=== PATIENT | female | born 1930 | race Caucasian/White ===

== ENCOUNTER 2019-07-24 16:12 | Inpatient (IN) | payer MEDICARE, BC ==
[~2019-07-24] VITALS: Ht 154.9 cm; Wt 51.8 kg
[~2019-07-24 16:12] MED LIST: ASPI-515 PO; ATOR40TA78 PO; CARV3.1212 PO; FAMO20TA7 PO; FLUT1BLS INH; FURO20TA3 PO; IPRA3AMP30 NPPB; LISI5TAB7 PO; POTA20LI2 NG
--- NOTE | 2019-07-24 16:30 | NUR ---
PT IN BED, KNOWS [facility] IN THE HOSPITAL, NO SIGNS OF DISTRESS, DOESN'T LIKE COMMUNICATING WITH THE NURSE OR PHYSICIAN, YELLS OUT FOR "HELP" WHEN NURSE IN ROOM.
[2019-07-24] MEDS ORDERED: SODIUM CHLORIDE FLUSH 10ML SYR IVF ONE (17:00)
[2019-07-24] MEDS ORDERED: ALBUTEROL/IPRATROPIUM 2.5MG/0.5MG, 3 ML NPPB SCH (17:00)
[2019-07-24] MEDS ORDERED: ALBUTEROL/IPRATROPIUM 2.5MG/0.5MG, 3 ML ONE (17:10)
[2019-07-24 17:17] LABS: INTERNATIONAL NORMALIZED RATIO 1.1 (0.93-1.1); PROTHROMBIN TIME 11.7 Seconds (9.6-11.5)
[2019-07-24 17:19] LABS: ALANINE AMINOTRANSFERASE 26 U/L (12-78); ALBUMIN 2.7 g/dL (3.4-5.0); ANION GAP 7 mmol/L (5-15); CHLORIDE 101 mmol/L (98-107); CREATININE 0.82 mg/dL (0.55-1.02)
[2019-07-24 17:23] LABS: ALKALINE PHOSPHATASE 98 U/L (45-117); BILIRUBIN,TOTAL 1.2 mg/dL (0.2-1.0); TOTAL PROTEIN 6.9 g/dL (6.4-8.2)
--- NOTE | 2019-07-24 17:30 | NUR ---
GRANDGRACIELA AND RT AT BEDSIDE, PT TOLERATING WELL. PT DID NOT WANT TO GO TO XRAY AT FIRST, HAD TO BE REMINDED WHY XRAY OF R HIP IS NECESSARY.
[2019-07-24] MEDS ORDERED: POTA20TA89 PO (17:31)
[2019-07-24] MEDS ORDERED: BUSP5TAB2 PO (17:31)
[2019-07-24] MEDS ORDERED: ENOX40SY4 SQ (17:31)
[2019-07-24] MEDS ORDERED: ACET-2065 PO (17:34)
[2019-07-24] MEDS ORDERED: DOCU100C33 PO (17:34)
--- NOTE | 2019-07-24 17:52 | NUR ---
PT BACK FROM IMAGING.
--- NOTE | 2019-07-24 18:50 | NUR ---
PT RESTING IN BED, ON OXY MASK. PT GRANDSON HAS LEFT, PT TO BE ADMITTED. DRESSINGS ON BILAT LOWER EXT REMOVED PER HOSPITALIST REQUEST. REPORT TO ISHAN
--- NOTE | 2019-07-24 19:04 | NUR ---
REPORT FROM GRAHAM. PT IN [facility], NO ACUTE DISTRESS, SIDE RAILS LOCKED, SAFETY PRECAUTIONS IN PLACE.
--- NOTE | 2019-07-24 19:15 | NUR ---
PLACED OPTIFOAN ON RIGHT LEG SKIN TEAR.
--- NOTE | 2019-07-24 19:23 | NUR ---
REPORT TO KOBY BAH.
[2019-07-24] MEDS ORDERED: BISACODYL 10 MG SUPP PR PRN (19:30)
[2019-07-24] MEDS ORDERED: HALOPERIDOL 5 MG/ML IVPush PRN (19:30)
[2019-07-24] MEDS ORDERED: hydrALAzine 20 MG/ML, 1ML IVPush PRN (19:30)
[2019-07-24] MEDS ORDERED: ONDANSETRON 2MG/ML, 2ML IVPush PRN (19:30)
[2019-07-24] MEDS ORDERED: VANCOMYCIN PER PHARMACY MC PRN (22:30)
[2019-07-24] MEDS ORDERED: VANCOMYCIN 1,300 MG in SODIUM CHLORIDE 0.9% 250 ML IV SCH (22:30)
[2019-07-24] MEDS ORDERED: PHARMACOKINETIC MONITORING MC PRN (22:30)
[2019-07-24] MEDS: DOCUSATE 100 MG CAPSULE PO SCH (22:30)
[2019-07-24] MEDS ORDERED: PHARMACOKINETIC CONSULTATION MC ONE (22:30)
[2019-07-24] MEDS: morphine SULFATE 10 MG/ML, 1ML IVPush PRN (22:55)
[2019-07-24] MEDS: ENOXAPARIN 60 MG/0.6 ML SQ SCH (23:02)
[2019-07-24] MEDS: FUROSEMIDE 20 MG TABLET PO SCH (23:02)
[2019-07-24] MEDS: BUSPIRONE 5 MG TABLET PO SCH (23:02)
[2019-07-24] MEDS: AMPICILLIN/SULBACTAM 3 GM in SODIUM CHLORIDE 0.9% 100 ML IV SCH (23:02)
[2019-07-24] MEDS: CARVEDILOL 3.125 MG TABLET PO SCH (23:02)
[2019-07-24] MEDS: ATORVASTATIN 40 MG TABLET PO SCH (23:02)
[2019-07-24 23:42] LABS: RAPID INFLUENZA A Negative (Negative); RAPID INFLUENZA B Negative (Negative)
[2019-07-25] MEDS: morphine SULFATE 10 MG/ML, 1ML IVPush PRN ×4 (00:12→22:25)
[2019-07-25 01:27] VITALS: BP 115/79
[2019-07-25] MEDS ORDERED: AMIO100T4 PO ×2 (01:34)
[2019-07-25] MEDS ORDERED: APIX5TAB PO (02:32)
[2019-07-25 03:47] VITALS: BP 137/62
[2019-07-25] MEDS ORDERED: ALBUTEROL/IPRATROPIUM 2.5MG/0.5MG, 3 ML NPPB PRN (04:30)
[2019-07-25] MEDS: AMPICILLIN/SULBACTAM 3 GM in SODIUM CHLORIDE 0.9% 100 ML IV SCH ×3 (06:11→23:56)
[2019-07-25 06:30] VITALS: BP 115/47
[2019-07-25 06:46] LABS: BASOPHILS % (AUTO) 0 % (0-1); EOSINOPHILS % (AUTO) 0 % (1-7); LYMPHOCYTES % (AUTO) 7 % (22-44); MD NO; MEAN CORPUSCULAR HEMOGLOBIN 31.6 pg (27.0-34.8); MEAN CORPUSCULAR HGB CONC 33.2 g/dL (32.4-35.8); MEAN PLATELET VOLUME 7.4 fL (7.4-10.4); MONOCYTES # (AUTO) 0.55 x10^3/uL (0.2-0.8); MONOCYTES % (AUTO) 5 % (2-9); NEUTROPHILS % (AUTO) 88 % (42-75); PLATELET COUNT 330 x10^3/uL (130-400); RED CELL DISTRIBUTION WIDTH 14.6 % (9.6-15.2)
[2019-07-25 06:56] LABS: ANION GAP 7 mmol/L (5-15); CALCIUM 7.6 mg/dL (8.5-10.1); CHLORIDE 101 mmol/L (98-107); CREATININE 0.74 mg/dL (0.55-1.02)
[2019-07-25] MEDS: LIDODERM REMOVE PATCH NOTE XX SCH (08:30)
[2019-07-25] MEDS: BUDESONIDE 0.5 MG/2 ML INHA NPPB SCH ×2 (08:34→20:40)
[2019-07-25] MEDS: ALBUTEROL/IPRATROPIUM 2.5MG/0.5MG, 3 ML NPPB SCH ×3 (08:34→20:40)
[2019-07-25] MEDS: FUROSEMIDE 20 MG TABLET PO SCH ×2 (09:09→19:07)
[2019-07-25] MEDS: BUSPIRONE 5 MG TABLET PO SCH ×2 (09:10→20:28)
[2019-07-25] MEDS: POTASSIUM CHLORIDE 20 MEQ TAB.ER.PRT PO SCH (09:10)
[2019-07-25] MEDS: DOCUSATE 100 MG CAPSULE PO SCH ×2 (09:10→20:28)
[2019-07-25] MEDS: CARVEDILOL 3.125 MG TABLET PO SCH ×2 (09:10→20:28)
[2019-07-25] MEDS: ENOXAPARIN 60 MG/0.6 ML SQ SCH (10:30)
[2019-07-25 12:10] VITALS: BP 110/62
[2019-07-25 18:20] VITALS: BP 131/54
[2019-07-25] MEDS: ATORVASTATIN 40 MG TABLET PO SCH (20:28)
[2019-07-25] MEDS: ACETAMINOPHEN 325 MG TABLET PO PRN (20:55)
[2019-07-25] MEDS: LIDODERM 5% PATCH TD PRN (20:55)
[2019-07-26 00:17] VITALS: BP 119/50
[2019-07-26] MEDS: morphine SULFATE 10 MG/ML, 1ML IVPush PRN ×2 (01:42→16:13)
[2019-07-26] MEDS: ALBUTEROL/IPRATROPIUM 2.5MG/0.5MG, 3 ML NPPB SCH ×4 (03:10→20:19)
[2019-07-26 06:53] LABS: BASOPHILS # (AUTO) 0.03 x10^3/uL (0-0.1); BASOPHILS % (AUTO) 0 % (0-1); EOSINOPHILS % (AUTO) 0 % (1-7); LYMPHOCYTES # (AUTO) 1.19 x10^3/uL (1-3.4); LYMPHOCYTES % (AUTO) 9 % (22-44); MD NO; MEAN CORPUSCULAR HEMOGLOBIN 30.7 pg (27.0-34.8); MEAN CORPUSCULAR HGB CONC 32.3 g/dL (32.4-35.8); MEAN PLATELET VOLUME 8.1 fL (7.4-10.4); MONOCYTES # (AUTO) 0.96 x10^3/uL (0.2-0.8); MONOCYTES % (AUTO) 7 % (2-9); NEUTROPHILS # (AUTO) 11.15 x10^3/uL (1.8-6.8); NEUTROPHILS % (AUTO) 84 % (42-75); PLATELET COUNT 433 x10^3/uL (130-400); RED BLOOD COUNT 3.63 x10^6/uL (3.82-5.3); RED CELL DISTRIBUTION WIDTH 15.4 % (9.6-15.2)
[2019-07-26 07:04] LABS: INTERNATIONAL NORMALIZED RATIO 1.07 (0.93-1.1); PROTHROMBIN TIME 11.4 Seconds (9.6-11.5)
[2019-07-26 07:05] LABS: ALBUMIN 2.4 g/dL (3.4-5.0); ANION GAP 8 mmol/L (5-15); CALCIUM 7.6 mg/dL (8.5-10.1); CHLORIDE 99 mmol/L (98-107)
[2019-07-26 07:08] LABS: CREATININE 0.79 mg/dL (0.55-1.02)
[2019-07-26 07:09] LABS: ALANINE AMINOTRANSFERASE 27 U/L (12-78); ALKALINE PHOSPHATASE 84 U/L (45-117); BILIRUBIN,TOTAL 0.9 mg/dL (0.2-1.0); TOTAL PROTEIN 6.7 g/dL (6.4-8.2)
[2019-07-26] MEDS: AMPICILLIN/SULBACTAM 3 GM in SODIUM CHLORIDE 0.9% 100 ML IV SCH ×2 (08:00→16:00)
[2019-07-26] MEDS: FUROSEMIDE 20 MG TABLET PO SCH ×2 (08:00→17:00)
[2019-07-26] MEDS: CARVEDILOL 3.125 MG TABLET PO SCH ×2 (08:09→21:45)
[2019-07-26 08:12] VITALS: BP 162/66
[2019-07-26] MEDS: LIDODERM REMOVE PATCH NOTE XX SCH (08:30)
[2019-07-26] MEDS: BUSPIRONE 5 MG TABLET PO SCH (09:00)
[2019-07-26] MEDS: DOCUSATE 100 MG CAPSULE PO SCH ×2 (09:00→21:45)
[2019-07-26] MEDS: POTASSIUM CHLORIDE 20 MEQ TAB.ER.PRT PO SCH (09:00)
[2019-07-26] MEDS: BUDESONIDE 0.5 MG/2 ML INHA NPPB SCH ×2 (10:00→20:19)
[2019-07-26] MEDS ORDERED: ALBUTEROL/IPRATROPIUM 2.5MG/0.5MG, 3 ML NPPB PRN (10:00)
[2019-07-26] MEDS ORDERED: HALOPERIDOL 5 MG/ML IV PRN (10:00)
[2019-07-26] MEDS ORDERED: HYDROmorphone 2 MG/ML, 1ML IVPush PRN (10:00)
[2019-07-26] MEDS ORDERED: MEPERIDINE/PF 25MG/ML,1ML IVPush PRN (10:00)
[2019-07-26] MEDS ORDERED: PROMETHAZINE 25 MG/ML, 1ML IV PRN (10:00)
[2019-07-26] MEDS ORDERED: LABETALOL 5MG/ML, 20ML IV PRN (10:00)
[2019-07-26] MEDS ORDERED: FENTANYL PF 100 MCG/2ML IV PRN (10:00)
[2019-07-26] MEDS ORDERED: METOPROLOL 1 MG/ML, 5ML IV PRN (10:00)
[2019-07-26] MEDS ORDERED: OXYcodone 5 MG/5 ML ORAL.SOL UDC PO PRN (10:00)
[2019-07-26] MEDS ORDERED: hydrALAzine 20 MG/ML, 1ML IV PRN (10:00)
[2019-07-26] MEDS ORDERED: FENTANYL PF 100 MCG/2ML ONE (10:03)
[2019-07-26] MEDS ORDERED: NEOSTIGMINE 1 MG/ML, 10ML ONE ×2 (10:52→12:02)
[2019-07-26] MEDS ORDERED: ONDANSETRON 2MG/ML, 2ML ONE (12:02)
[2019-07-26] MEDS ORDERED: ROCURONIUM 10MG/ML,5ML ONE (12:02)
[2019-07-26] MEDS ORDERED: CEFAZOLIN 1,000 MG ONE (12:02)
[2019-07-26] MEDS ORDERED: DEXAMETHASONE 4 MG/ML, 1ML ONE (12:02)
[2019-07-26] MEDS ORDERED: PROPOFOL 10 MG/ML, 20ML ONE (12:02)
[2019-07-26] MEDS ORDERED: SUCCINYLCHOLINE 20 MG/ML, 10ML ONE (12:02)
[2019-07-26] MEDS ORDERED: GLYCOPYRROLATE 0.2MG/1ML, 5ML ONE (12:02)
[2019-07-26] MEDS ORDERED: SUGAMMADEX 200 MG/2 ML IVPush ONE (12:02)
[2019-07-26] MEDS: CEFAZOLIN PMX 1GM/50ML 50 ML IV SCH ×2 (13:00→22:15)
[2019-07-26] MEDS ORDERED: ALBUTEROL/IPRATROPIUM 2.5MG/0.5MG, 3 ML ONE (13:05)
[2019-07-26] MEDS ORDERED: DIPHENHYDRAMINE 50 MG/ML, 1ML IVPush ONE (14:00)
[2019-07-26] MEDS ORDERED: MORPHINE SULFATE 4 MG/ML, 1ML ONE (16:12)
[2019-07-26] MEDS ORDERED: HALOPERIDOL 5 MG/ML IM PRN (17:30)
[2019-07-26 19:30] VITALS: BP 138/77
[2019-07-26] MEDS: LIDODERM 5% PATCH TD PRN (21:40)
[2019-07-26] MEDS: ATORVASTATIN 40 MG TABLET PO SCH (21:45)
[2019-07-27 00:27] VITALS: BP 154/59
[2019-07-27] MEDS: morphine SULFATE 10 MG/ML, 1ML IVPush PRN ×4 (00:31→14:49)
[2019-07-27] MEDS: AMPICILLIN/SULBACTAM 3 GM in SODIUM CHLORIDE 0.9% 100 ML IV SCH ×3 (00:31→16:43)
[2019-07-27] MEDS: ALBUTEROL/IPRATROPIUM 2.5MG/0.5MG, 3 ML NPPB SCH ×4 (03:10→21:25)
[2019-07-27] MEDS: CEFAZOLIN PMX 1GM/50ML 50 ML IV SCH (06:20)
[2019-07-27] MEDS: LIDODERM REMOVE PATCH NOTE XX SCH (08:30)
[2019-07-27] MEDS: FUROSEMIDE 20 MG TABLET PO SCH ×2 (08:31→16:43)
[2019-07-27] MEDS: CARVEDILOL 3.125 MG TABLET PO SCH ×2 (09:29→21:13)
[2019-07-27] MEDS: BUSPIRONE 5 MG TABLET PO SCH ×2 (09:29→21:13)
[2019-07-27] MEDS: POTASSIUM CHLORIDE 20 MEQ TAB.ER.PRT PO SCH (09:29)
[2019-07-27] MEDS: DOCUSATE 100 MG CAPSULE PO SCH ×2 (09:29→21:23)
[2019-07-27] MEDS: BUDESONIDE 0.5 MG/2 ML INHA NPPB SCH ×2 (09:55→21:25)
[2019-07-27 10:08] VITALS: BP 128/69
[2019-07-27 10:36] LABS: ALANINE AMINOTRANSFERASE 21 U/L (12-78); ALBUMIN 2.1 g/dL (3.4-5.0); ANION GAP 8 mmol/L (5-15); CALCIUM 7.4 mg/dL (8.5-10.1); CHLORIDE 104 mmol/L (98-107); CREATININE 0.81 mg/dL (0.55-1.02)
[2019-07-27 10:38] LABS: ALKALINE PHOSPHATASE 73 U/L (45-117); BILIRUBIN,TOTAL 0.8 mg/dL (0.2-1.0)
[2019-07-27 11:17] LABS: BASOPHILS # (AUTO) 0.02 x10^3/uL (0-0.1); BASOPHILS % (AUTO) 0 % (0-1); EOSINOPHILS % (AUTO) 0 % (1-7); LYMPHOCYTES # (AUTO) 0.66 x10^3/uL (1-3.4); LYMPHOCYTES % (AUTO) 7 % (22-44); MD SCAN; MEAN CORPUSCULAR HEMOGLOBIN 31.3 pg (27.0-34.8); MEAN CORPUSCULAR HGB CONC 33.1 g/dL (32.4-35.8); MEAN CORPUSCULAR VOLUME 94.7 fL (80-100); MEAN PLATELET VOLUME 7.4 fL (7.4-10.4); MONOCYTES # (AUTO) 0.56 x10^3/uL (0.2-0.8); MONOCYTES % (AUTO) 6 % (2-9); NEUTROPHILS # (AUTO) 8.45 x10^3/uL (1.8-6.8); NEUTROPHILS % (AUTO) 87 % (42-75); PLATELET COUNT 271 x10^3/uL (130-400); RED BLOOD COUNT 3.52 x10^6/uL (3.82-5.3); RED CELL DISTRIBUTION WIDTH 15.2 % (9.6-15.2)
[2019-07-27 14:05] LABS: TROPONIN I 0.033 ng/mL (0.000-0.045)
[2019-07-27 14:11] VITALS: BP 148/55
[2019-07-27 19:45] LABS: TROPONIN I 0.027 ng/mL (0.000-0.045)
[2019-07-27 20:46] VITALS: BP 132/67
[2019-07-27] MEDS: APIXABAN 5 MG TABLET PO SCH (21:13)
[2019-07-27] MEDS: ACETAMINOPHEN 325 MG TABLET PO PRN (21:14)
[2019-07-27] MEDS: ATORVASTATIN 40 MG TABLET PO SCH (21:14)
[2019-07-28] MEDS: AMPICILLIN/SULBACTAM 3 GM in SODIUM CHLORIDE 0.9% 100 ML IV SCH ×2 (00:57→08:27)
[2019-07-28 01:35] VITALS: BP 105/59
[2019-07-28] MEDS: ALBUTEROL/IPRATROPIUM 2.5MG/0.5MG, 3 ML NPPB SCH ×4 (03:19→21:00)
[2019-07-28 05:52] VITALS: BP 126/64
[2019-07-28] MEDS: morphine SULFATE 10 MG/ML, 1ML IVPush PRN ×2 (05:53→22:30)
[2019-07-28 08:34] VITALS: BP 122/53
[2019-07-28] MEDS: DOCUSATE 100 MG CAPSULE PO SCH ×2 (09:00→22:19)
[2019-07-28] MEDS: BUDESONIDE 0.5 MG/2 ML INHA NPPB SCH ×2 (09:00→21:00)
--- NOTE | 2019-07-28 09:20 | NUR ---
Recommend PUREE/NTL diet with adherence to the following strategies: Upright at 90* for pO 1:1 feeding assistance and supervision Cues for timely swallow No straws Crush and float meds in puree swallow sign posted Addendum: 07/28/19 at 1120 by Macrina SRINIVASAN Amended: Links added.
[2019-07-28] MEDS: POTASSIUM CHLORIDE 20 MEQ TAB.ER.PRT PO SCH (10:04)
[2019-07-28] MEDS: FUROSEMIDE 20 MG TABLET PO SCH ×2 (10:06→18:01)
[2019-07-28] MEDS: CARVEDILOL 3.125 MG TABLET PO SCH ×2 (10:07→22:19)
[2019-07-28] MEDS: APIXABAN 5 MG TABLET PO SCH ×2 (10:07→22:19)
[2019-07-28] MEDS: LIDODERM REMOVE PATCH NOTE XX SCH (10:07)
[2019-07-28] MEDS: BUSPIRONE 5 MG TABLET PO SCH ×2 (10:07→22:19)
[2019-07-28 12:36] VITALS: BP 110/58
[2019-07-28 19:58] VITALS: BP 122/77
[2019-07-28] MEDS: ATORVASTATIN 40 MG TABLET PO SCH (22:19)
[2019-07-28] MEDS: AMOXICILLIN/CLAV 875-125MG TABLET PO SCH (22:21)
[2019-07-28] MEDS ORDERED: MORPHINE SULFATE 4 MG/ML, 1ML ONE (22:24)
[2019-07-29] MEDS ORDERED: MORPHINE SULFATE 4 MG/ML, 1ML ONE (01:00)
[2019-07-29] MEDS: morphine SULFATE 10 MG/ML, 1ML IVPush PRN ×2 (01:03→22:34)
[2019-07-29 02:21] VITALS: BP 135/60
[2019-07-29] MEDS: ALBUTEROL/IPRATROPIUM 2.5MG/0.5MG, 3 ML NPPB SCH ×4 (03:00→20:49)
[2019-07-29 06:51] VITALS: BP 163/50
[2019-07-29] MEDS: BUDESONIDE 0.5 MG/2 ML INHA NPPB SCH ×2 (09:00→20:49)
[2019-07-29] MEDS ORDERED: [UNRECOGNIZED DRUG - REMARK] MC PRN (09:30)
[2019-07-29] MEDS ORDERED: INSTRUCTION SEE COMMENTS XX PRN (09:30)
[2019-07-29] MEDS: CARVEDILOL 3.125 MG TABLET PO SCH ×2 (10:50→21:06)
[2019-07-29] MEDS: DOCUSATE 100 MG CAPSULE PO SCH ×2 (10:50→21:06)
[2019-07-29] MEDS: AMOXICILLIN/CLAV 875-125MG TABLET PO SCH ×2 (10:50→21:05)
[2019-07-29] MEDS: APIXABAN 2.5 MG TABLET PO SCH ×2 (10:51→21:06)
[2019-07-29] MEDS: LISINOPRIL 20 MG TABLET PO SCH ×2 (10:51→21:06)
[2019-07-29] MEDS: FUROSEMIDE 20 MG TABLET PO SCH ×2 (10:51→18:20)
[2019-07-29] MEDS: LIDODERM REMOVE PATCH NOTE XX SCH (10:58)
[2019-07-29] MEDS: BUSPIRONE 5 MG TABLET PO SCH ×2 (10:58→21:06)
[2019-07-29 13:16] VITALS: BP 99/47
[2019-07-29 19:19] VITALS: BP 116/56
[2019-07-29] MEDS: ATORVASTATIN 40 MG TABLET PO SCH (21:05)
[2019-07-29] MEDS: MELATONIN 3 MG TABLET PO SCH (21:06)
[2019-07-30] MEDS: ALBUTEROL/IPRATROPIUM 2.5MG/0.5MG, 3 ML NPPB SCH ×4 (03:00→19:59)
[2019-07-30] MEDS: LISINOPRIL 20 MG TABLET PO SCH ×2 (08:27→19:41)
[2019-07-30] MEDS: APIXABAN 2.5 MG TABLET PO SCH ×2 (08:27→19:41)
[2019-07-30] MEDS: AMOXICILLIN/CLAV 875-125MG TABLET PO SCH ×2 (08:27→19:40)
[2019-07-30] MEDS: DOCUSATE 100 MG CAPSULE PO SCH ×2 (08:27→19:41)
[2019-07-30] MEDS: BUSPIRONE 5 MG TABLET PO SCH ×2 (08:27→19:41)
[2019-07-30] MEDS: FUROSEMIDE 20 MG TABLET PO SCH ×2 (08:27→16:58)
[2019-07-30] MEDS: CARVEDILOL 3.125 MG TABLET PO SCH ×2 (08:27→19:42)
[2019-07-30 08:30] VITALS: BP 110/54
[2019-07-30] MEDS: LIDODERM REMOVE PATCH NOTE XX SCH (08:30)
[2019-07-30] MEDS: BUDESONIDE 0.5 MG/2 ML INHA NPPB SCH ×2 (09:00→19:59)
--- NOTE | 2019-07-30 13:22 | NUR ---
REC: Ground/NTL diet; crush/float meds Addendum: 07/30/19 at 1324 by Malka SRINIVASAN Amended: Links added.
[2019-07-30 13:57] VITALS: BP 104/48
[2019-07-30] MEDS: OXYcodone/APAP 5/325MG TABLET PO PRN (14:31)
[2019-07-30 18:22] VITALS: BP 110/59
[2019-07-30] MEDS: MELATONIN 3 MG TABLET PO SCH (19:41)
[2019-07-30] MEDS: ATORVASTATIN 40 MG TABLET PO SCH (19:41)
[2019-07-31 02:00] VITALS: BP 107/65
[2019-07-31] MEDS: ALBUTEROL/IPRATROPIUM 2.5MG/0.5MG, 3 ML NPPB SCH ×4 (04:07→20:49)
[2019-07-31 06:44] VITALS: BP 132/62
[2019-07-31] MEDS: BUDESONIDE 0.5 MG/2 ML INHA NPPB SCH ×2 (06:50→20:49)
[2019-07-31] MEDS: LIDODERM REMOVE PATCH NOTE XX SCH (09:19)
[2019-07-31] MEDS: BUSPIRONE 5 MG TABLET PO SCH ×2 (09:33→21:24)
[2019-07-31] MEDS: DOCUSATE 100 MG CAPSULE PO SCH ×2 (09:33→21:24)
[2019-07-31] MEDS: AMOXICILLIN/CLAV 875-125MG TABLET PO SCH ×2 (09:33→21:00)
[2019-07-31] MEDS: APIXABAN 2.5 MG TABLET PO SCH ×2 (09:33→21:24)
[2019-07-31] MEDS: FUROSEMIDE 20 MG TABLET PO SCH ×2 (09:33→16:44)
[2019-07-31] MEDS: LISINOPRIL 20 MG TABLET PO SCH ×2 (09:34→21:24)
[2019-07-31] MEDS: CARVEDILOL 3.125 MG TABLET PO SCH ×2 (09:34→21:24)
[2019-07-31 13:43] VITALS: BP 94/56
[2019-07-31 16:44] VITALS: BP 125/50
[2019-07-31 20:29] VITALS: BP 120/61
[2019-07-31] MEDS: ATORVASTATIN 40 MG TABLET PO SCH (21:24)
[2019-07-31] MEDS: MELATONIN 3 MG TABLET PO SCH (21:24)
[2019-08-01] MEDS: ALBUTEROL/IPRATROPIUM 2.5MG/0.5MG, 3 ML NPPB SCH ×4 (03:00→21:10)
[2019-08-01] MEDS: OXYcodone/APAP 5/325MG TABLET PO PRN ×2 (05:17→21:05)
[2019-08-01 06:12] VITALS: BP 111/57
[2019-08-01] MEDS ORDERED: ACETAMINOPHEN 325 MG TABLET PO PRN (07:00)
[2019-08-01] MEDS: BUSPIRONE 5 MG TABLET PO SCH ×2 (08:20→21:18)
[2019-08-01] MEDS: APIXABAN 2.5 MG TABLET PO SCH ×2 (08:20→21:05)
[2019-08-01] MEDS: CARVEDILOL 3.125 MG TABLET PO SCH ×2 (08:20→21:05)
[2019-08-01] MEDS: LIDODERM REMOVE PATCH NOTE XX SCH (08:20)
[2019-08-01] MEDS: FUROSEMIDE 20 MG TABLET PO SCH ×2 (08:20→17:12)
[2019-08-01] MEDS: LISINOPRIL 20 MG TABLET PO SCH ×2 (08:20→21:06)
[2019-08-01] MEDS: DOCUSATE 100 MG CAPSULE PO SCH ×2 (08:21→21:06)
[2019-08-01] MEDS: AMOXICILLIN/CLAV 875-125MG TABLET PO SCH ×2 (08:21→21:04)
[2019-08-01] MEDS: CALCIUM/VITAMIN D3 250-125 TABLET PO SCH ×2 (08:21→21:05)
[2019-08-01 08:44] LABS: CREATININE 0.59 mg/dL (0.55-1.02)
[2019-08-01] MEDS: BUDESONIDE 0.5 MG/2 ML INHA NPPB SCH ×2 (09:00→21:00)
--- NOTE | 2019-08-01 09:46 | NUR ---
REC: Ground/thin liquids; crush meds Addendum: 08/01/19 at 0946 by Malka SRINIVASAN Amended: Links added.
[2019-08-01 13:19] VITALS: BP 111/65
[2019-08-01 18:25] VITALS: BP 161/65
[2019-08-01] MEDS ORDERED: LIDODERM 5% PATCH TD PRN (19:30)
[2019-08-01] MEDS: ATORVASTATIN 40 MG TABLET PO SCH (21:05)
[2019-08-01] MEDS: MELATONIN 3 MG TABLET PO SCH (21:06)
[2019-08-02 06:30] VITALS: BP 129/66
[2019-08-02] MEDS: ALBUTEROL/IPRATROPIUM 2.5MG/0.5MG, 3 ML NPPB SCH ×3 (06:55→19:48)
[2019-08-02] MEDS: BUDESONIDE 0.5 MG/2 ML INHA NPPB SCH ×2 (06:55→19:48)
[2019-08-02] MEDS: CARVEDILOL 3.125 MG TABLET PO SCH ×2 (10:26→21:00)
[2019-08-02] MEDS: APIXABAN 2.5 MG TABLET PO SCH ×2 (10:26→21:25)
[2019-08-02] MEDS: FUROSEMIDE 20 MG TABLET PO SCH ×2 (10:26→16:55)
[2019-08-02] MEDS: BUSPIRONE 5 MG TABLET PO SCH ×2 (10:26→21:24)
[2019-08-02] MEDS: CALCIUM/VITAMIN D3 250-125 TABLET PO SCH ×2 (10:26→21:24)
[2019-08-02] MEDS: LISINOPRIL 20 MG TABLET PO SCH ×2 (10:26→21:00)
[2019-08-02] MEDS: LIDODERM REMOVE PATCH NOTE XX SCH (10:27)
[2019-08-02] MEDS: DOCUSATE 100 MG CAPSULE PO SCH ×2 (10:27→21:24)
[2019-08-02 12:15] VITALS: BP 91/51
[2019-08-02] MEDS: RISPERIDONE 0.5 MG TABLET PO SCH (16:56)
[2019-08-02 19:32] VITALS: BP 95/55
[2019-08-02 21:18] VITALS: BP 92/52
[2019-08-02] MEDS: ATORVASTATIN 40 MG TABLET PO SCH (21:24)
[2019-08-02] MEDS: OXYcodone/APAP 5/325MG TABLET PO PRN (21:27)
[2019-08-03 01:42] VITALS: BP 110/60
[2019-08-03] MEDS: ALBUTEROL/IPRATROPIUM 2.5MG/0.5MG, 3 ML NPPB SCH ×4 (03:28→20:15)
[2019-08-03] MEDS: ALENDRONATE 10 MG TABLET PO SCH (05:19)
[2019-08-03 08:00] VITALS: BP 151/62
[2019-08-03] MEDS: LIDODERM REMOVE PATCH NOTE XX SCH (08:30)
[2019-08-03] MEDS: BUSPIRONE 5 MG TABLET PO SCH ×2 (09:26→20:54)
[2019-08-03] MEDS: CALCIUM/VITAMIN D3 250-125 TABLET PO SCH ×2 (09:26→20:55)
[2019-08-03] MEDS: APIXABAN 2.5 MG TABLET PO SCH ×2 (09:27→20:55)
[2019-08-03] MEDS: OXYcodone/APAP 5/325MG TABLET PO PRN ×2 (09:27→20:56)
[2019-08-03] MEDS: FUROSEMIDE 20 MG TABLET PO SCH (09:27)
[2019-08-03] MEDS: DOCUSATE 100 MG CAPSULE PO SCH ×2 (09:28→20:55)
[2019-08-03] MEDS: BUDESONIDE 0.5 MG/2 ML INHA NPPB SCH ×2 (09:40→20:15)
[2019-08-03 12:28] VITALS: BP 109/52
[2019-08-03] MEDS: RISPERIDONE 0.5 MG TABLET PO SCH (18:24)
[2019-08-03 18:53] VITALS: BP 108/58
[2019-08-03] MEDS: ATORVASTATIN 40 MG TABLET PO SCH (20:54)
[2019-08-03] MEDS: LISINOPRIL 20 MG TABLET PO SCH (20:55)
[2019-08-03] MEDS: CARVEDILOL 3.125 MG TABLET PO SCH (20:56)
[2019-08-04 02:04] VITALS: BP 119/55
[2019-08-04] MEDS: ALBUTEROL/IPRATROPIUM 2.5MG/0.5MG, 3 ML NPPB SCH ×4 (03:00→20:02)
[2019-08-04] MEDS: OXYcodone/APAP 5/325MG TABLET PO PRN ×2 (03:34→16:15)
[2019-08-04] MEDS: ALENDRONATE 10 MG TABLET PO SCH (05:55)
[2019-08-04] MEDS: LIDODERM REMOVE PATCH NOTE XX SCH (08:30)
[2019-08-04] MEDS: BUDESONIDE 0.5 MG/2 ML INHA NPPB SCH ×2 (09:00→20:02)
[2019-08-04] MEDS: CALCIUM/VITAMIN D3 250-125 TABLET PO SCH ×2 (09:43→20:11)
[2019-08-04] MEDS: DOCUSATE 100 MG CAPSULE PO SCH ×2 (09:43→20:11)
[2019-08-04] MEDS: BUSPIRONE 5 MG TABLET PO SCH ×2 (09:43→20:11)
[2019-08-04] MEDS: APIXABAN 2.5 MG TABLET PO SCH ×2 (09:43→20:11)
[2019-08-04] MEDS: FUROSEMIDE 20 MG TABLET PO SCH (09:44)
[2019-08-04] MEDS ORDERED: ALEN10TA10 PO (12:11)
[2019-08-04] MEDS ORDERED: RISP0.5T24 PO (12:12)
[2019-08-04] MEDS ORDERED: SENN-193 PO (12:12)
[2019-08-04] MEDS ORDERED: ACET325T26 PO (12:12)
[2019-08-04] MEDS ORDERED: CALC1TAB68 PO (12:12)
[2019-08-04] MEDS ORDERED: LISI-170 PO (12:12)
[2019-08-04] MEDS ORDERED: OXYcodone/APAP 5/325MG PO (12:12)
[2019-08-04 15:29] VITALS: BP 115/60
[2019-08-04] MEDS: RISPERIDONE 0.5 MG TABLET PO SCH (17:50)
[2019-08-04 19:20] VITALS: BP 116/43
[2019-08-04] MEDS: ATORVASTATIN 40 MG TABLET PO SCH (20:11)
[2019-08-04] MEDS: LISINOPRIL 20 MG TABLET PO SCH (20:12)
[2019-08-04] MEDS: CARVEDILOL 3.125 MG TABLET PO SCH (20:12)
[2019-08-05] MEDS: OXYcodone/APAP 5/325MG TABLET PO PRN (02:02)
[2019-08-05] MEDS: ALBUTEROL/IPRATROPIUM 2.5MG/0.5MG, 3 ML NPPB SCH ×2 (02:37→09:00)
[2019-08-05 03:01] VITALS: BP 135/69
[2019-08-05] MEDS: ALENDRONATE 10 MG TABLET PO SCH (05:57)
[2019-08-05] MEDS: LIDODERM REMOVE PATCH NOTE XX SCH (08:30)
[2019-08-05 08:41] VITALS: BP 111/57
[2019-08-05] MEDS: BUDESONIDE 0.5 MG/2 ML INHA NPPB SCH (09:00)
[2019-08-05] MEDS: FUROSEMIDE 20 MG TABLET PO SCH (09:00)
[2019-08-05 09:22] VITALS: BP 93/45
[2019-08-05 09:38] VITALS: BP 100/54
[2019-08-05] MEDS: BUSPIRONE 5 MG TABLET PO SCH (09:39)
[2019-08-05] MEDS: CALCIUM/VITAMIN D3 250-125 TABLET PO SCH (09:39)
[2019-08-05] MEDS: DOCUSATE 100 MG CAPSULE PO SCH (09:39)
[2019-08-05] MEDS: APIXABAN 2.5 MG TABLET PO SCH (09:40)
[2019-08-05 12:37] VITALS: BP 125/48
== END 2019-08-05 15:03 | disposition home or self-care (01) | DRG 469 ==
LOC: ED 17:30 → EDIP 18:27 → 4WST 19:57
PROVIDERS: ADMIT Internal Medicine Infectious Disease; ATTEND Internal Medicine
PROC: 0SRR0J9 Replacement of Right Hip Joint, Femoral Surface with Synthetic Substitute, Cemented, Open Approach (ICD-10-PCS; principal; 2019-07-26 10:00)
DX: S72.091A Other fracture of head and neck of right femur, initial encounter for closed fracture (principal); J96.21 Acute and chronic respiratory failure with hypoxia; J69.0 Pneumonitis due to inhalation of food and vomit; F02.81 Dementia in other diseases classified elsewhere, unspecified severity, with behavioral disturbance; J44.0 Chronic obstructive pulmonary disease with (acute) lower respiratory infection; J44.1 Chronic obstructive pulmonary disease with (acute) exacerbation; F05 Delirium due to known physiological condition; I50.42 Chronic combined systolic (congestive) and diastolic (congestive) heart failure; W18.30XA Fall on same level, unspecified, initial encounter; Y93.9 Activity, unspecified; Y92.9 Unspecified place or not applicable; I48.0 Paroxysmal atrial fibrillation; G30.8 Other Alzheimer's disease; I11.0 Hypertensive heart disease with heart failure; E87.6 Hypokalemia; R07.89 Other chest pain; S81.811A Laceration without foreign body, right lower leg, initial encounter; X58.XXXA Exposure to other specified factors, initial encounter
CPT/HCPCS: 36415; 36600; 71045; 72170; 80048; 80053; 82565; 82803; 83605; 83880; 84484; 85025; 85610; 85730; 87040; 87400; 93005; 93306; 94640; 99291; C1713; G0378; J0295; J0690; J1100; J1650; J2405; J2704; J2710; J3010; J3370; J7626; C1762; C1776; J0330; J1200; J1630; J2270; J7050; J7512